=== PATIENT | male | born 1955 | race Caucasian/White ===

== ENCOUNTER 2019-06-06 04:13 | Inpatient (IN) | payer OTHER ==
[~2019-06-06] VITALS: Ht 172.7 cm; Wt 92.7 kg
[2019-06-06 06:17] LABS: Basophils # (auto) 0 uL; Basophils % (auto) 0.5 % (0.0-2.0); Eosinophils # (auto) 0.2 uL; Eosinophils % (auto) 2.8 % (0.0-7.0); Hematocrit 36.3 % (41.0-53.0); Hemoglobin 11.9 g/dL (13.5-17.5); Lymphocytes # (auto) 1.3 uL; Lymphocytes % (auto) 23.1 % (10.0-50.0); Mean Corpuscular Hemoglobin 27.8 pg (28.0-32.0); Mean Corpuscular Hgb Conc. 32.8 g/dL (32.0-36.0); Mean Corpuscular Volume 84.9 fL (80.0-100.0); Monocytes # (auto) 0.9 uL; Neutrophils # (auto) 3.3 uL; Neutrophils % (auto) 57.6 % (37.0-80.0); Platelet Count (auto) 308 10^3/uL (140-450); Red Blood Cells 4.27 10^6/uL (4.5-5.90); Red Cell Distribution Width 16.1 % (11.8-14.3); White Blood Cell 5.7 10^3/uL (4.4-10.8)
[2019-06-06] MEDS ORDERED: ENOXAPARIN SOD 40 MG/0.4 ML SYRINGE SC ONE (06:24)
[2019-06-06] MEDS ORDERED: ENOXAPARIN SOD 60 MG/0.6 ML SYRINGE SC ONE (06:24)
[2019-06-06] MEDS ORDERED: ENOXAPARIN SOD 100 MG/1 ML SYRINGE SC ONE (06:30)
[2019-06-06 06:32] LABS: INR 1.05 (0.9-1.15)
[2019-06-06 06:37] LABS: Albumin 2.8 g/dL (3.4-5.0); Calcium 8.5 mg/dL (8.5-10.1)
[2019-06-06 06:40] LABS: BUN/Creatinine Ratio 12.8; Bilirubin, Total 0.2 mg/dL (0.2-1.0); Total Protein 6.7 g/dL (6.4-8.2)
[2019-06-06] MEDS ORDERED: ONDANSETRON HCL 4 MG/2 ML VIAL IV ONE (06:45)
[2019-06-06] MEDS ORDERED: MORPHINE SULFATE 10 MG/ML INJ 1ML SDV IM ONE (06:45)
[2019-06-06] MEDS ORDERED: ACETAMINOPHEN 325 MG TAB PO PRN (07:00)
[2019-06-06] MEDS ORDERED: HYDROcodone-ACET 5/325MG TAB PO PRN (07:00)
[2019-06-06] MEDS ORDERED: TEMAZEPAM 15 MG CAP PO PRN (07:00)
[2019-06-06] MEDS ORDERED: ONDANSETRON HCL 4 MG/2 ML VIAL IV PRN (07:00)
[2019-06-06] MEDS ORDERED: FERROUS SULFATE 325 MG TAB PO SCH (08:00)
--- NOTE | 2019-06-06 08:13 | NUR ---
Telemetry admit from ER GURDEEP,ERIKA admitted to Telemetry unit after SBAR received. Pt admitted to rm 245 B per w/c accompanied by [employer] with diagnosis of DVT left leg. Patient oriented to Rustam sommers RN, unit, room, bed, and unit policies regarding patient care and visiting hours. . Patient weighed by bedscale and encouraged to call if they need something. All questions and concerns addressed, patient verbalized understanding. Admission assessment done and charted. Will continue to monitor pt
[2019-06-06 08:15] VITALS: BP 119/80
[2019-06-06 08:40] LABS: Urine WBC None Seen /hpf (0 - 3)
[2019-06-06 08:46] LABS: Urine Bacteria NONE SEEN /hpf (None Seen); Urine Blood Negative /uL (Negative); Urine Mucus FEW (None Seen); Urine Specific Gravity 1.009 (1.001-1.035)
[2019-06-06 09:00] VITALS: BP 119/80
[2019-06-06] MEDS ORDERED: FAMOTIDINE 20 MG TAB PO SCH (10:00)
[2019-06-06] MEDS ORDERED: PANTOPRAZOLE 40 MG TAB PO SCH (10:00)
[2019-06-06] MEDS ORDERED: ESOM20CA PO (10:21)
[2019-06-06] MEDS ORDERED: GABA100C9 PO (10:21)
--- NOTE | 2019-06-06 12:40 | NUR ---
DR. OROPEZA WAS IN TO SEE PT AND MD LEFT PRESCRIPTIONS AND DISCHARGE INSTRUCTIONS/ ORDERS. PT AWARE OF OF DISCHARGE ORDERS. PT'S PRESENT AT THE TIME.
[2019-06-06 13:00] VITALS: BP 119/71
[2019-06-06] MEDS ORDERED: APIXABAN 5 MG TAB PO SCH ×3 (13:00→22:00)
[2019-06-06] MEDS ORDERED: ENOXAPARIN SOD 100 MG/1 ML SYRINGE SC SCH (22:00)
[2019-06-13] MEDS ORDERED: APIXABAN 5 MG TAB PO SCH ×2 (22:00)
== END 2019-06-06 15:25 | disposition home or self-care (01) | DRG 300 ==
LOC: ER 04:13 → OVERFLOW 04:14 → EAST 09:08
PROVIDERS: ADMIT Nurse Practitioner; ATTEND Internal Medicine
DX: I82.412 Acute embolism and thrombosis of left femoral vein (principal); E44.0 Moderate protein-calorie malnutrition; I82.432 Acute embolism and thrombosis of left popliteal vein; I82.442 Acute embolism and thrombosis of left tibial vein; I25.10 Atherosclerotic heart disease of native coronary artery without angina pectoris; D50.9 Iron deficiency anemia, unspecified; K21.9 Gastro-esophageal reflux disease without esophagitis; Z82.49 Family history of ischemic heart disease and other diseases of the circulatory system; Z98.84 Bariatric surgery status; Z95.5 Presence of coronary angioplasty implant and graft; Z68.31 Body mass index [BMI] 31.0-31.9, adult
CPT/HCPCS: 36415; 80053; 81001; 83880; 85025; 85610; 85730; 93005; 93971; G0378; J2405